=== PATIENT | female | born 1980 | race Caucasian/White ===

== ENCOUNTER 2024-05-14 16:42 | Inpatient (IN) | payer OTHER ==
[2024-05-14 16:48] VITALS: BMI 33.6
[2024-05-14] MEDS ORDERED: ACETAMINOPHEN INJECTION 100 ML ONE (18:55)
[2024-05-14 19:02] LABS: VENOUS O2 SATURATION 68.2 % (70-80); VENOUS PCO2 40.2 mmHg (38-52); VENOUS PH 7.42 (7.310-7.410)
[2024-05-14 19:16] LABS: INR 1.18 (0.83-1.09); PROTHROMBIN TIME (PATIENT) 13.3 SEC (9.7-13.0)
[2024-05-14] MEDS: ACETAMINOPHEN 1000 MG/100 ML BAG IVPB ONE (19:21)
[2024-05-14] MEDS: LACTATED RINGERS SOLUTION 1000 ML INFUS.BAG IV ONE (19:21)
[2024-05-14] MEDS: LACTATED RINGERS SOLUTION 1000 ML INFUS.BAG IV STA (19:24)
[2024-05-14 19:30] LABS: POTASSIUM 3.8 mmol/L (3.5-5.1)
[2024-05-14 19:31] LABS: CALCIUM 8.9 mg/dL (8.5-10.1)
[2024-05-14 19:32] LABS: ALBUMIN 3.9 g/dl (3.4-5.0); BLOOD UREA NITROGEN 11.8 mg/dL (7-18)
[2024-05-14 19:35] LABS: BASO % 0.1 % (0-2.0); CREATININE 0.8 mg/dL (0.55-1.3); EOS % 0.2 % (0-4.5); HEMATOCRIT 37.3 % (32.4-45.2); HEMOGLOBIN 12.3 GM/dL (10.7-15.3); LYMPH % 15.8 % (8-40); MCH 27.7 pg (25.7-33.7); MCHC 33.1 g/dl (32.0-36.0); MEAN CELL VOLUME 83.8 fl (80-96); MEAN PLT VOLUME 7.9 fl (7.5-11.1); MONO % 8.7 % (3.8-10.2); NEUT % 75.2 % (42.8-82.8); PLATELET COUNT 249 10^3/uL (134-434); RBC 4.45 M/mm3 (3.60-5.2); RDW 14.5 % (11.6-15.6); WHITE BLOOD COUNT 6.9 K/mm3 (4.0-10.0)
[2024-05-14 19:36] LABS: EPI CELLS 10 /uL (0-25.1); HYALINE CASTS 0 /uL (0-3.1); URINE APPEARANCE CLOUDY; URINE BACTERIA >9,000 /uL (0-1359); URINE BILIRUBIN NEGATIVE (NEGATIVE); URINE COLOR YELLOW; URINE GLUCOSE (UA) NEGATIVE (NEGATIVE); URINE KETONE TRACE (NEGATIVE); URINE LEUK ESTERASE 1+ (NEGATIVE); URINE NITRITE POSITIVE (NEGATIVE); URINE PROTEIN NEGATIVE (NEGATIVE); URINE RBC 41 /uL (0-23.9); URINE UROBILINOGEN 0.2 mg/dL (0.2-1.0); URINE WBC 108 /uL (0-25.8)
[2024-05-14 19:37] LABS: BILIRUBIN,TOTAL 0.6 mg/dL (0.2-1); TOT PROT 7.4 g/dl (6.4-8.2)
[2024-05-14] MEDS ORDERED: CEFTRIAXONE 1 GM/50 ML BAG ONE (19:43)
[2024-05-14] MEDS ORDERED: KETOROLAC TROMETHAMINE 15 MG/ML VIAL ONE (20:09)
[2024-05-14] MEDS: KETOROLAC TROMETHAMINE 30 MG/1 ML VIAL IVPUSH ONE (20:20)
[2024-05-14] MEDS: CEFTRIAXONE 1,000 MG in DEXTROSE 5%-WATER - 50 ML IVPB ONE (20:20)
[2024-05-14] MEDS ORDERED: ACETAMINOPHEN 500 MG TABLET (FP) ONE (23:54)
[2024-05-14] MEDS: ACETAMINOPHEN 500 MG TABLET (FP) PO ONE (23:57)
[2024-05-15] MEDS: LACTATED RINGERS SOLUTION 1,000 ML/1,000 ML INFUS.BAG IV STA (00:42)
[2024-05-15] MEDS ORDERED: ALBUTEROL SO4 HFA INHALER IH PRN (01:34)
[2024-05-15] MEDS: POLYETHYLENE GLYCOL (HEALTHYLAX) 3350 17 GM PACKET PO SCH (09:39)
[2024-05-15] MEDS: ACETAMINOPHEN 500 MG TABLET (FP) PO PRN (09:39)
[2024-05-15] MEDS: AZTREONAM 1 GM in DEXTROSE 5%-WATER - 50 ML IVPB SCH (09:39)
[2024-05-15] MEDS: ENOXAPARIN NA (PORCINE) 40 MG/0.4 ML DISP.SYRIN SQ SCH (10:24)
[2024-05-15 10:33] LABS: HEMATOCRIT 33.5 % (32.4-45.2); HEMOGLOBIN 11.4 GM/dL (10.7-15.3); MCH 28.3 pg (25.7-33.7); MEAN CELL VOLUME 83.4 fl (80-96); PLATELET COUNT 222 10^3/uL (134-434); RBC 4.02 M/mm3 (3.60-5.2); RDW 14.2 % (11.6-15.6); WHITE BLOOD COUNT 5.4 K/mm3 (4.0-10.0)
[2024-05-15 10:52] LABS: POTASSIUM 3.6 mmol/L (3.5-5.1)
[2024-05-15 10:59] LABS: ALBUMIN 3.3 g/dl (3.4-5.0); BLOOD UREA NITROGEN 8.2 mg/dL (7-18); CALCIUM 8.5 mg/dL (8.5-10.1)
[2024-05-15 11:03] LABS: BILIRUBIN,TOTAL 0.5 mg/dL (0.2-1); CREATININE 0.8 mg/dL (0.55-1.3); PHOSPHOROUS 2.8 mg/dL (2.5-4.9); TOT PROT 6.5 g/dl (6.4-8.2)
[2024-05-15] MEDS: BUDESONIDE/FORMETEROL FUMARATE 80/4.5 mcg INHALER IH SCH (12:27)
[2024-05-15 15:06] VITALS: RESP 18
[2024-05-15] MEDS: LACTATED RINGERS SOLUTION 1,000 ML/1,000 ML INFUS.BAG IV SCH (15:13)
[2024-05-15] MEDS ORDERED: CEFEPIME HCL 1 GM VIAL (RESTRICTED TO ID) ONE (17:39)
[2024-05-15] MEDS: CEFEPIME 1 GM in DEXTROSE 5%-WATER 100 ML IVPB SCH (17:43)
[2024-05-15] MEDS: KETOROLAC TROMETHAMINE 10 MG TABLET PO PRN (18:47)
[2024-05-16 10:00] LABS: BASO % 0.3 % (0-2.0); EOS % 1.9 % (0-4.5); HEMATOCRIT 34.9 % (32.4-45.2); HEMOGLOBIN 11.8 GM/dL (10.7-15.3); LYMPH % 18.7 % (8-40); MCH 28.1 pg (25.7-33.7); MCHC 33.7 g/dl (32.0-36.0); MEAN CELL VOLUME 83.5 fl (80-96); MEAN PLT VOLUME 7.9 fl (7.5-11.1); MONO % 11.4 % (3.8-10.2); NEUT % 67.7 % (42.8-82.8); PLATELET COUNT 241 10^3/uL (134-434); RBC 4.18 M/mm3 (3.60-5.2); RDW 14.5 % (11.6-15.6); WHITE BLOOD COUNT 5.6 K/mm3 (4.0-10.0)
[2024-05-16] MEDS ORDERED: AZTREONAM 1 GM in DEXTROSE 5%-WATER - 50 ML IVPB SCH (10:00)
[2024-05-16 10:18] LABS: POTASSIUM 3.5 mmol/L (3.5-5.1)
[2024-05-16 10:22] LABS: ALBUMIN 3.3 g/dl (3.4-5.0); BLOOD UREA NITROGEN 7.3 mg/dL (7-18)
[2024-05-16 10:24] LABS: MAGNESIUM 2.1 mg/dL (1.8-2.4)
[2024-05-16 10:25] LABS: CREATININE 0.8 mg/dL (0.55-1.3)
[2024-05-16 10:26] LABS: BILIRUBIN,TOTAL 0.6 mg/dL (0.2-1); TOT PROT 6.8 g/dl (6.4-8.2)
[2024-05-16 10:27] LABS: PHOSPHOROUS 3.5 mg/dL (2.5-4.9)
[2024-05-16] MEDS: CEFTRIAXONE 1 G/50 ML PREMIX 50 ML IVPB SCH ×2 (18:45→19:19)
[2024-05-16 18:53] LABS: HIV INTERPRETATION NEGATIVE (NEGATIVE)
[2024-05-16] MEDS: ACETAMINOPHEN 1000 MG/100 ML BAG IVPB PRN (23:44)
[2024-05-17 10:37] LABS: BASO % 0.1 % (0-2.0); EOS % 3.7 % (0-4.5); HEMATOCRIT 35.2 % (32.4-45.2); HEMOGLOBIN 12.1 GM/dL (10.7-15.3); LYMPH % 25.7 % (8-40); MCH 28.5 pg (25.7-33.7); MCHC 34.4 g/dl (32.0-36.0); MEAN CELL VOLUME 82.8 fl (80-96); MONO % 11.1 % (3.8-10.2); NEUT % 59.4 % (42.8-82.8); PLATELET COUNT 272 10^3/uL (134-434); RBC 4.25 M/mm3 (3.60-5.2); RDW 14.2 % (11.6-15.6); WHITE BLOOD COUNT 4.8 K/mm3 (4.0-10.0)
[2024-05-17] MEDS ORDERED: ACETAMINOPHEN 325 MG TABLET (FP) PO PRN (10:44)
[2024-05-17 11:02] LABS: POTASSIUM 3.8 mmol/L (3.5-5.1)
[2024-05-17 11:08] LABS: CALCIUM 8.6 mg/dL (8.5-10.1)
[2024-05-17 11:09] LABS: ALBUMIN 3.5 g/dl (3.4-5.0); BLOOD UREA NITROGEN 8.8 mg/dL (7-18)
[2024-05-17 11:12] LABS: CREATININE 0.7 mg/dL (0.55-1.3)
[2024-05-17 11:14] LABS: BILIRUBIN,TOTAL 0.6 mg/dL (0.2-1)
[2024-05-18 09:23] LABS: BASO % 0.3 % (0-2.0); EOS % 3.3 % (0-4.5); HEMATOCRIT 38.6 % (32.4-45.2); HEMOGLOBIN 12.7 GM/dL (10.7-15.3); LYMPH % 23.6 % (8-40); MEAN PLT VOLUME 7.7 fl (7.5-11.1); NEUT % 66.8 % (42.8-82.8); PLATELET COUNT 342 10^3/uL (134-434); RBC 4.54 M/mm3 (3.60-5.2); RDW 14.1 % (11.6-15.6); WHITE BLOOD COUNT 6.6 K/mm3 (4.0-10.0)
[2024-05-18 09:34] LABS: POTASSIUM 3.7 mmol/L (3.5-5.1)
[2024-05-18 09:41] LABS: ALBUMIN 3.7 g/dl (3.4-5.0); BLOOD UREA NITROGEN 14.6 mg/dL (7-18); CALCIUM 9.1 mg/dL (8.5-10.1)
[2024-05-18 09:45] LABS: CREATININE 0.8 mg/dL (0.55-1.3)
[2024-05-18 09:46] LABS: BILIRUBIN,TOTAL 0.6 mg/dL (0.2-1); TOT PROT 7.5 g/dl (6.4-8.2)
[2024-05-18] MEDS ORDERED: LACTOBACILLUS ACIDOPHILUS 1 TABLET PO SCH (10:00)
[2024-05-18 15:02] VITALS: BP 143/100; PULSE 91; TEMP 98.8
[2024-05-18] MEDS: amLODIPine BESYLATE 5 MG TABLET (FP) PO SCH (15:19)
== END 2024-05-18 16:40 | disposition home or self-care (01) | DRG 463 ==
LOC: JER 16:42 → JERBED 23:02 → J5S 05-15 01:59 → OBSVTOIN 05-16 08:33
PROVIDERS: ADMIT Internal Medicine
DX: N12 Tubulo-interstitial nephritis, not specified as acute or chronic (principal); J45.909 Unspecified asthma, uncomplicated; K59.00 Constipation, unspecified; N93.9 Abnormal uterine and vaginal bleeding, unspecified
CPT/HCPCS: 0241U-QW; 36415; 71045-TC-FY; 74177-TC; 76830-TC; 80053; 81003; 81374; 82550; 82803; 83605; 83735; 84100; 84484; 84703; 85025; 85027; 85610; 85651; 85730; 86038; 86140; 86850; 86870; 86880; 86900; 86901; 86902; 87040; 87045; 87046; 87086; 87186; 87205; 87209; 87389; 87491; 87591; 87661; 93005; 93010; 99285-25; G0378; J0131; Q9967

== ENCOUNTER 2024-11-05 17:34 | Emergency (ER) | payer OTHER ==
[2024-11-05 17:40] VITALS: BP 147/92; PULSE 87; RESP 18; TEMP 98.4; BMI 34.5
[2024-11-05] MEDS ORDERED: ACETAMINOPHEN INJECTION 100 ML ONE (18:30)
[2024-11-05] MEDS ORDERED: ONDANSETRON 4 MG/2 ML VIAL ONE (18:30)
[2024-11-05] MEDS: SODIUM CHLORIDE 0.9% 500 ML INFUS.BAG IV ONE (18:36)
[2024-11-05] MEDS: ONDANSETRON 4 MG/2 ML VIAL IVPUSH ONE (18:36)
[2024-11-05] MEDS: ACETAMINOPHEN 1000 MG/100 ML BAG IVPB ONE (18:36)
[2024-11-05 18:37] LABS: ABSOLUTE IMMATURE GRANULOCYTES 0.02 x10^3/uL (0.0-0.031); BASOPHILS # 0.02 x10^3/uL (0.01-0.08); EOSINOPHIL % 1.6 % (0.7-5.8); EOSINOPHILS # 0.08 x10^3/uL (0.04-0.36); HEMATOCRIT 44.3 % (34.1-44.9); MCHC 31.6 g/dl (32.2-35.5); MEAN CELL VOLUME 89.1 fl (79.4-94.8); MEAN PLT VOLUME 10.1 fl (9.4-12.3); MONOCYTE % 16.4 % (4.7-12.5); PLATELET COUNT 304 x10^3/uL (182-369); RDW 13.1 % (12.2-17.1)
[2024-11-05 18:59] LABS: POTASSIUM 3.2 mmol/L (3.5-5.1)
[2024-11-05 19:01] LABS: CALCIUM 9.3 mg/dL (8.5-10.1)
[2024-11-05 19:02] LABS: ALBUMIN 3.7 g/dl (3.4-5.0)
[2024-11-05 19:05] LABS: CREATININE 0.8 mg/dL (0.55-1.3)
[2024-11-05 19:06] LABS: BILIRUBIN,TOTAL 0.3 mg/dL (0.2-1); TOT PROT 7.4 g/dl (6.4-8.2)
== END 2024-11-05 20:46 | disposition home or self-care (01) ==
LOC: JER 17:34
PROC: 3E033NZ Introduction of Analgesics, Hypnotics, Sedatives into Peripheral Vein, Percutaneous Approach (ICD-10-PCS; principal; 2024-11-05)
PROC: 3E033GC Introduction of Other Therapeutic Substance into Peripheral Vein, Percutaneous Approach (ICD-10-PCS; 2024-11-05)
DX: K52.9 Noninfective gastroenteritis and colitis, unspecified (principal); R11.2 Nausea with vomiting, unspecified; R51.9 Headache, unspecified; M79.10 Myalgia, unspecified site
CPT/HCPCS: 0241U-QW; 36415; 76705-TC; 80053; 83690; 85025; 99285-25; J0131